=== PATIENT | female | born 1985 | race Caucasian/White ===

== ENCOUNTER 2017-01-31 10:28 | Emergency (ER) | payer OTHER ==
[2017-01-31 10:36] VITALS: BP 123/74; TEMP 98.3
[2017-01-31 11:14] VITALS: RESP 16
[2017-01-31] MEDS ORDERED: IPRATROPIUM-ALBUTEROL 3 ML NEB INHALATION STA (11:55)
[2017-01-31] MEDS ORDERED: methylPREDNISolone SOD SUCCI 125 MG/2 ML VIAL IM STA (11:55)
--- NOTE | 2017-01-31 12:08 | ED ---
General Adult HPI - General Chief complaint: Upper Respiratory Infection Stated complaint: SADIQ X 1 WEEKS Time Seen by Provider: 01/31/17 11:55 Source: patient, RN notes reviewed Mode of arrival: ambulatory Limitations: no limitations - History of Present Illness Initial comments: Patient is a 31-year-old female significant past medical history for asthma, who presents emergency room today with a chief complaint of cough congestion over the last 2 weeks. Patient does note that she history for sinus infection was on amoxicillin. She states that she did take this has improved her signs of infection but is now having increased cough congestion positive sputum production. Patient does admit that she's used breathing treatments at home with little relief. Patient denies any other complaints or symptoms at this time. Patient denies any recent fever, chills, shortness of breath, chest pain , back pain, abdominal pain, nausea or vomiting, numbness or tingling, dysuria or hematuria, constipation or diarrhea, headaches or visual changes, or any other complaints. - Related Data Home Medications Medication Instructions Recorded Confirmed Albuterol Inhaler [Ventolin 1 - 2 puff INHALATION Q6HR PRN 03/07/15 07/13/15 Inhaler] Sertraline [Zoloft] 75 mg PO DAILY 07/13/15 07/13/15 Previous Rx's Medication Instructions Recorded Cyclobenzaprine [Flexeril] 10 mg PO TID #14 tab 07/14/15 Ibuprofen [Motrin] 800 mg PO Q6HR PRN #20 tab 07/14/15 Azithromycin [Zithromax Z-pack] 0 mg PO DIRECTED #6 tab 01/31/17 predniSONE 60 mg PO DAILY 5 Days 01/31/17 Allergies Allergy/AdvReac Type Severity Reaction Status Date / Time minocycline Allergy Rash/Hives Verified 01/31/17 10:36 Review of Systems ROS Statement: Those systems with pertinent positive or pertinent negative responses have been documented in the HPI. ROS Other: All systems not noted in ROS Statement are negative. Past Medical History Past Medical History: Asthma History of Any Multi-Drug Resistant Organisms: None Reported Past Surgical History: Section, Tonsillectomy Past Psychological History: No Psychological Hx Reported Smoking Status: Current every day smoker Past Alcohol Use History: None Reported Past Drug Use History: None Reported General Exam - General Exam Comments Initial Comments: General: The patient is awake and alert, in no distress, and does not appear acutely ill. Eye: Pupils are equal, round and reactive to light, extra-ocular movements are intact. No nystagmus. There is normal conjunctiva bilaterally. No signs of icterus. Ears, nose, mouth and throat: There are moist mucous membranes and no oral lesions. Neck: The neck is supple, there is no tenderness or JVD. Cardiovascular: There is a regular rate and rhythm. No murmur, rub or gallop is appreciated. Respiratory: Expiratory bilateral wheeze. respirations are non-labored, breath sounds are equal. No stridor, rales, or rhonchi. Musculoskeletal: Normal ROM, no tenderness. Strength 5/5. Sensation intact. Pulses equal bilaterally 2+. Neurological: A&O x 3. CN II-XII intact, There are no obvious motor or sensory deficits. Coordination appears grossly intact. Speech is normal. Skin: Skin is warm and dry and no rashes or lesions are noted. Psychiatric: Cooperative, appropriate mood & affect, normal judgment. Limitations: no limitations Course Vital Signs 01/31/17 01/31/17 01/31/17 10:34 11:10 12:03 Temperature 98.3 F Pulse Rate 90 87 Respiratory 20 16 Rate Blood Pressure 123/74 O2 Sat by Pulse 98 Oximetry 01/31/17 12:13 Temperature Pulse Rate 88 Respiratory Rate Blood Pressure O2 Sat by Pulse Oximetry Medical Decision Making - Medical Decision Making Patient's chest x-ray reviewed and is unremarkable. Patient will be started on steroids. Advised to continue breathing treatments. Advised return if symptoms increase or worsen or for any other concerns. Disposition Clinical Impression: Acute bronchitis Disposition: HOME SELF-CARE Condition: Good Instructions: Acute Bronchitis (ED) Additional Instructions: Please use medication as discussed. Please follow-up with family doctor in the next 2 days of symptoms have not improved. Please return to emergency room if the symptoms increase or worsen or for any other concerns. Prescriptions: Azithromycin [Zithromax Z-pack] 0 mg PO DIRECTED #6 tab predniSONE 60 mg PO DAILY 5 Days Referrals: Zhanna Bowling MD [Primary Care Provider] - 1-2 days Time of Disposition: 12:43
[2017-01-31 12:26] VITALS: PULSE 88
--- NOTE | 2017-01-31 13:20 | XR ---
EXAMINATION TYPE: XR chest 2V DATE OF EXAM: 01/31/2017 12:32 PM COMPARISON: 07/14/2015 INDICATION: Cough congestion TECHNIQUE: Single frontal view of the chest is obtained. FINDINGS: The heart size is normal. The pulmonary vasculature is normal. The lungs are clear. IMPRESSION: 1. No acute pulmonary process.
== END 2017-01-31 12:54 | disposition home or self-care (01) ==
LOC: EC 10:28
DX: J20.9 Acute bronchitis, unspecified (principal); F17.200 Nicotine dependence, unspecified, uncomplicated; Z79.899 Other long term (current) drug therapy; Z88.1 Allergy status to other antibiotic agents
CPT/HCPCS: 94640; 71020; 99283; 96372; J2930

== ENCOUNTER → 2017-02-02 | Outpatient (CLI) | payer OTHER ==
--- NOTE | 2017-02-02 15:34 | US ---
EXAMINATION TYPE: US pelvic complete DATE OF EXAM: 02/02/2017 3:11 PM COMPARISON: NONE CLINICAL HISTORY: R10.9 rt flank Pain, R10.2 female pelvic pain. Patient stated has bilateral flank p ain radiating down to pelvis and occurs intermittently x 2 months; ; C Section x 3; on Depo Prov era shot. (Bladder was assessed on pelvic US as renal US was also requested today) TECHNIQUE: Transabdominal (TA) Date of LMP: 01/26/2017 EXAM MEASUREMENTS: Uterus: 10.9 x 4.6 x 3.1 cm Endometrial Stripe: 1.0 cm Right Ovary: 2.8 x 2.5 x 1.8 cm Left Ovary: 3.6 x 3.8 x 3.4 cm Bladder: wall appears wnl; bilateral ureteral jets were seen. Post Void Volume is wnl at 25.1ml. 1. Uterus: Anteverted 2. Endometrium: may be thick for day 8 LMP; however, patient stated only has limited spotting for me nses with Depo Provera shot 3. Right Ovary: single cyst is noted = 1.9 x 2.4 x 1.6cm 4. Left Ovary: single cyst is noted = 2.8 x 2.6 x 2.9cm Spectral, color and waveform Doppler imaging shows good arterial and venous flow within the ovaries ; there is no evidence for ovarian torsion. 5. Bilateral Adnexa: wnl 6. Posterior cul-de-sac: wnl IMPRESSION: 1. Right ovarian cyst. Follow-up is recommended. 2. Left ovarian cyst. Follow-up is recommended.
--- NOTE | 2017-02-02 15:34 | US ---
EXAMINATION TYPE: US kidneys/renal and bladder DATE OF EXAM: 02/02/2017 2:47 PM COMPARISON: NONE CLINICAL HISTORY: R10.9 rt flank Pain, R10.2 female pelvic pain. Patient stated has bilateral flank p ain radiating to pelvis x 2 months and occurs intermittently; on Depo Provera shot; see Pelvic US tod ay. EXAM MEASUREMENTS: Right Kidney: 11.4 x 5.5 x 4.5 cm Left Kidney: 10.8 x 4.7 x 4.6 cm Post Void Residual Volume: 25.1 mL as seen on Pelvic US today Right Kidney: No hydronephrosis or masses seen Left Kidney: No hydronephrosis or masses seen Bladder: see pelvic US report today There is no evidence for hydronephrosis at this point in time. No nephrolithiasis is seen. No mann s are identified. IMPRESSION: 1. Normal retroperitoneal ultrasound.
== END | disposition home or self-care (01) ==
LOC: RADUSWWP 14:29
PROVIDERS: ATTEND Internal Medicine
DX: N83.201 Unspecified ovarian cyst, right side (principal); N83.202 Unspecified ovarian cyst, left side; R10.9 Unspecified abdominal pain
CPT/HCPCS: 76770; 76856

== ENCOUNTER → 2018-01-11 | Outpatient (CLI) | payer OTHER ==
--- NOTE | 2018-01-11 09:53 | US ---
EXAMINATION TYPE: US transvaginal DATE OF EXAM: 01/11/2018 COMPARISON: CT abdomen and pelvis February 16, 2012 CLINICAL HISTORY: R10.2 Pelvic and perineal pain. TECHNIQUE: Transvaginal (TV). Date of LMP: 3 years ago, patient just stopped depo shot. EXAM MEASUREMENTS: Uterus: 8.8 x 4.3 x 6.0 cm Endometrial Stripe: 0.9 cm Right Ovary: 4.0 x 3.4 x 3.2 cm Left Ovary: 2.3 x 1.2 x 2.4 cm History of 3 C sections. 1. Uterus: Anteverted wnl 2. Endometrium: wnl 3. Right Ovary: cyst measures 2.9 x 2.2 x 2.4 cm 4. Left Ovary: wnl. 5. Bilateral Adnexa: wnl 6. Posterior cul-de-sac: no free fluid Tiny amount of fluid is seen in the cervical endometrial canal markedly heterogeneous uterus is seen. No free fluid is seen in pelvic cul-de-sac. There is 2.9 cm simple appearing cyst in the right ovary. No suspicious left adnexal lesions are seen . IMPRESSION: A 2.9 cm simple appearing cyst right ovary. Heterogeneous uterus is present.
== END | disposition home or self-care (01) ==
LOC: RADUSWWP 08:21
PROVIDERS: ATTEND Obstetrics & Gynecology
DX: N83.291 Other ovarian cyst, right side (principal); R93.49 Abnormal radiologic findings on diagnostic imaging of other urinary organs
CPT/HCPCS: 76830

== ENCOUNTER → 2018-01-11 | Outpatient (CLI) | payer OTHER ==
--- NOTE | 2018-01-11 09:47 | US ---
EXAMINATION TYPE: US abdomen complete DATE OF EXAM: 01/11/2018 COMPARISON: US & CT abdomen and pelvis February 16, 2012 CLINICAL HISTORY: R10.9 intermittent abdominal pain. RUQ pain EXAM MEASUREMENTS: Liver Length: 12.6 cm Gallbladder Wall: 0.3 cm CBD: 0.6 cm Spleen: 11.9 cm Right Kidney: 10.9 x 4.3 x 6.7 cm Left Kidney: 11.7 x 4.8 x 6.5 cm Pancreas: visualized portions wnl Liver: wnl Gallbladder: No stones seen Evidence for sonographic Sharpe's sign: Yes CBD: measures 0.6 cm, upper limits of normal Spleen: wnl Right Kidney: No hydronephrosis or masses seen Left Kidney: No hydronephrosis or masses seen Upper IVC: wnl Abd Aorta: wnl The liver is homogenous. The intrahepatic portion of the IVC and visualized abdominal aorta are with in normal limits. There is no evidence of cholelithiasis. Common bile duct is unremarkable. The vi sualized portions of the pancreas are homogenous. The spleen is unremarkable. Kidneys are symmetric and free of hydronephrosis. No renal lesions are seen. IMPRESSION: No suspicious finding is seen to account for patient's symptoms.
== END | disposition home or self-care (01) ==
LOC: RADUSWWP 08:22
PROVIDERS: ATTEND Family Medicine
DX: R10.2 Pelvic and perineal pain (principal); R10.9 Unspecified abdominal pain
CPT/HCPCS: 76700

== ENCOUNTER → 2018-01-22 | Outpatient (CLI) | payer OTHER ==
--- NOTE | 2018-01-22 17:07 | US ---
EXAMINATION TYPE: US venous doppler duplex LE LT DATE OF EXAM: 01/22/2018 4:31 PM COMPARISON: NONE CLINICAL HISTORY: M79.662 Pain in left leg. Left leg pain, left ankle swelling x 1 day SIDE PERFORMED: Left TECHNIQUE: The lower extremity deep venous system is examined utilizing real time linear array sonog cathi with graded compression, doppler sonography and color-flow sonography. VESSELS IMAGED: External Iliac Vein (EIV) Common Femoral Vein Deep Femoral Vein Greater Saphenous Vein * Femoral Vein Popliteal Vein Small Saphenous Vein * Proximal Calf Veins (* superficial vessels) Left Leg: Appears negative for DVT IMPRESSION: No evidence of deep venous thrombosis in the left leg.
== END | disposition home or self-care (01) ==
LOC: RADUSMAIN 16:26
PROVIDERS: ATTEND Family Medicine
DX: M79.662 Pain in left lower leg (principal)